=== PATIENT | female | born 1970 | race Caucasian/White ===

== ENCOUNTER 2022-07-29 07:59 | Outpatient (CLI) | payer BC, SELFPAY ==
--- NOTE | 2022-07-29 08:15 | CRLHL7_ITS ---
For Patients: As a result of the Century Cures Act, medical imaging exams and procedure reports are released immediately into your electronic medical record. You may view this report before your referring provider. If you have questions, please contact your health care provider. INDICATION: Headaches. Pituitary abnormality noted on outside cervical spine MRI. Report and images not available at this time. TECHNIQUE: Brain MRI without contrast. Pituitary protocol. The following sequences were obtained: DWI and ADC mapping sequences. Axial FLAIR and T2 weighted sequences. Coronal T2 weighted sequence of the sellar region. Coronal and sagittal thin-section T1 weighted sequences of the sellar region. COMPARISON: None. FINDINGS: The pituitary gland is normal in size and appearance. The neurohypophysis demonstrates normal T1 shortening. Pituitary infundibulum is midline and normal in appearance. The cavernous sinuses and Meckel`s caves are normal in appearance. The suprasellar cistern, hypothalamus and optic chiasm are all normal in appearance. All the major intracranial vascular structures demonstrate normal flow-related signal voids and intraluminal enhancement. Sphenoid sinus demonstrates subsellar pneumatization. No acute infarct or hemorrhage. Scattered FLAIR hyperintensities within the supratentorial white matter, typical for chronic microvascular ischemic change. No mass effect or herniation. No hydrocephalus or extra-axial collections. Posterior fossa is normal. All the major intracranial vascular structures demonstrate normal flow-related signal. The orbital contents are normal. No calvarial or skull base marrow signal abnormality. No obstructive sinus disease. No extracranial soft tissue findings. IMPRESSION: 1. No noncontrast abnormalities involving the pituitary gland, infundibulum or parasellar structures. 2. No acute ischemia or other acute intracranial pathology. 3. Minor chronic microvascular ischemic changes. Dictated by Michael Ambrose MD @ 07/29/2022 1:00:59 PM (Electronically Signed)
== END 2022-07-29 08:00 | disposition home or self-care (01) ==
PROVIDERS: PCP Physician Assistant Medical; Referring Provider Internal Medicine Endocrinology, Diabetes & Metabolism; Visit Provider Physician Assistant Medical
DX: R51.9 Headache, unspecified (principal); I67.82 Cerebral ischemia
CPT/HCPCS: 70551

== ENCOUNTER 2022-12-28 13:32 | Outpatient (CLI) | payer BC, SELFPAY | END 2022-12-28 13:33 | disposition home or self-care (01) | LOC: LKVREF 13:33 | PROVIDERS: PCP Physician Assistant Medical; Visit Provider Family Medicine | DX: Z01.818 Encounter for other preprocedural examination (principal); E06.3 Autoimmune thyroiditis | CPT/HCPCS: 84443 ==